=== PATIENT | female | born 1975 | race Caucasian/White ===

== ENCOUNTER 2023-11-09 17:47 | Emergency (ER) | payer BC ==
[~2023-11-09] VITALS: Ht 165.1 cm; Wt 63.5 kg
[2023-11-09 18:21] VITALS: BP_SYST 142; PULSE 79; RESP 18; TEMP 98.3; O2SAT 97
[2023-11-09] MEDS ORDERED: KETAMINE HCL 500 MG/10 ML VIAL IVP ONE (19:30)
[2023-11-09] MEDS ORDERED: MORPHINE 4 MG INJ. 4 MG/ML VIAL IVP ONE (19:30)
[2023-11-09] MEDS ORDERED: ONDANSETRON HCL 4 MG/2 ML VIAL IVP ONE (19:30)
[2023-11-09] MEDS ORDERED: MIDAZOLAM HCL 5 MG/5 ML VIAL IVP ONE (19:30)
[2023-11-09] MEDS ORDERED: IBUP-1969 PO (20:48)
[2023-11-09] MEDS ORDERED: TRAM50TA2 PO (20:48)
[2023-11-09 21:30] VITALS: BP_SYST 150; PULSE 80; RESP 16; TEMP 98.1; O2SAT 97
[2023-11-09] MEDS ORDERED: IBUPROFEN 800 MG TABLET PO ONE (21:45)
[2023-11-09] MEDS ORDERED: ONDANSETRON 4 MG ODT TAB PO ONE (21:45)
[2023-11-09] MEDS ORDERED: HYDROcodone/ACETAMIN 10-325 MG TAB PO ONE (21:45)
[2023-11-09] MEDS ORDERED: ONDANSETRON 4 MG ODT TAB ONE (21:50)
== END 2023-11-09 23:54 | disposition home or self-care (01) ==
LOC: SED 17:47
DX: S82.851A Displaced trimalleolar fracture of right lower leg, initial encounter for closed fracture (principal); Z79.899 Other long term (current) drug therapy; W01.0XXA Fall on same level from slipping, tripping and stumbling without subsequent striking against object, initial encounter; Y93.89 Activity, other specified; Y92.89 Other specified places as the place of occurrence of the external cause; Y99.8 Other external cause status
CPT/HCPCS: 99285; 27840; 96374; 96375; 73610; 99152; 73600; Q0162; J2250; J2405; J2270

== ENCOUNTER 2023-11-17 04:40 | Day surgery (SDC) | payer BC ==
[~2023-11-17] VITALS: Ht 167.6 cm; Wt 79.5 kg
[~2023-11-17 04:40] MED LIST: IBUP-1969 PO; TRAM50TA2 PO
[2023-11-17] MEDS ORDERED: CELECOXIB 100 MG CAPSULE ONE (05:26)
[2023-11-17] MEDS ORDERED: ACETAMINOPHEN 500 MG TABLET ONE (05:26)
[2023-11-17] MEDS ORDERED: oxyCODONE HCL 10 MG TAB.ER.12H PO ONE ×2 (05:26→07:00)
[2023-11-17] MEDS ORDERED: SCOPOLAMINE HYDROBROMIDE 1 MG PATCH .72 H (TRANSDERM-SCOP) TD ONE ×2 (05:26→07:00)
[2023-11-17] MEDS ORDERED: GABAPENTIN 300 MG CAPSULE ONE (05:27)
[2023-11-17 06:09] LABS: HCG,QUAL RESULT NEGATIVE (NEGATIVE)
[2023-11-17 06:25] VITALS: O2SAT 99
[2023-11-17] MEDS ORDERED: GABAPENTIN 300 MG CAPSULE PO ONE (07:00)
[2023-11-17] MEDS ORDERED: ACETAMINOPHEN 500 MG TABLET PO ONE (07:00)
[2023-11-17] MEDS ORDERED: CELECOXIB 100 MG CAPSULE PO ONE (07:00)
[2023-11-17] MEDS ORDERED: ceFAZolin SODIUM 2 GM in D5W 100 ML IV ONE (07:00)
[2023-11-17] MEDS ORDERED: VANCOMYCIN HCL 1,000 MG in NS 250 ML IV ONE (07:15)
[2023-11-17] MEDS ORDERED: HYDROmorphone 2 MG/ML VIAL ONE (07:18)
[2023-11-17] MEDS ORDERED: MIDAZOLAM HCL 2 MG/2 ML VIAL (VERSED) ONE (07:18)
[2023-11-17] MEDS ORDERED: BUPIVACAINE /PF 0.25% 30 ML VIAL INJ ONE (07:20)
[2023-11-17] MEDS ORDERED: PROPOFOL 200MG/ 20ML VIAL (DIPRIVAN) IV ONE (07:20)
[2023-11-17] MEDS ORDERED: MIDAZOLAM HCL/PF 2 MG/2 ML SYRINGE ONE (07:20)
[2023-11-17] MEDS ORDERED: KETOROLAC TROMETHAMINE 15 MG VIAL ONE (07:20)
[2023-11-17] MEDS ORDERED: SEVOFLURANE 15 MIN GAS INH ONE (07:20)
[2023-11-17] MEDS ORDERED: DEXAMETHASONE SOD PHOSPHATE 4 MG/ML VIAL ONE (07:20)
[2023-11-17] MEDS ORDERED: ONDANSETRON HCL 4 MG/2 ML VIAL IVP PRN (08:45)
[2023-11-17] MEDS ORDERED: HYDROmorphone 1 MG/ML INJ. CARTRIDGE IVP PRN (08:45)
[2023-11-17] MEDS ORDERED: METOCLOPRAMIDE HCL 10 MG/2 ML VIAL IVP PRN (08:45)
[2023-11-17] MEDS ORDERED: HYDROmorphone 1 MG/ML INJ. CARTRIDGE ONE ×4 (09:30→12:22)
[2023-11-17] MEDS: HYDROmorphone 1 MG/ML INJ. CARTRIDGE IVP PRN ×3 (09:35→12:27)
[2023-11-17] MEDS ORDERED: ONDANSETRON HCL 4 MG/2 ML VIAL ONE (10:11)
[2023-11-17] MEDS ORDERED: LORazepam 1 MG TABLET PO ONE (15:00)
[2023-11-17] MEDS ORDERED: LORazepam 1 MG TABLET ONE (15:00)
[2023-11-17 15:56] VITALS: BP_SYST 167; PULSE 88; RESP 16
== END 2023-11-17 15:37 | disposition home or self-care (01) ==
LOC: SMU 04:40 → SDS 04:40
PROVIDERS: ATTEND Orthopaedic Surgery Sports Medicine
DX: S82.851A Displaced trimalleolar fracture of right lower leg, initial encounter for closed fracture (principal); W01.0XXA Fall on same level from slipping, tripping and stumbling without subsequent striking against object, initial encounter; Y93.89 Activity, other specified; Y92.89 Other specified places as the place of occurrence of the external cause; Y99.8 Other external cause status
CPT/HCPCS: 87081; 93005; 71045; 27822; 64450; 84703; 76000; J3490; J1100; J1885; J3465; J2405; J2704; J3370; J1170 ×2; J7060; J7050; C1769; C1713 ×7